=== PATIENT | female | born 1975 | race Caucasian/White ===

== ENCOUNTER 2017-07-26 08:05 | Day surgery (SDC) | payer OTHER | END 2017-07-26 19:45 | disposition home or self-care (01) | LOC: CIR.AMB 08:05 | DX: O02.1 Missed abortion (principal); Z3A.01 Less than 8 weeks gestation of pregnancy ==

== ENCOUNTER → 2020-02-12 | Day surgery (SDC) | payer OTHER | END | disposition home or self-care (01) | LOC: CIR.AMB 07:03 | PROVIDERS: ATTEND Specialist | DX: O02.1 Missed abortion (principal) ==